=== PATIENT | female | born 1955 ===

== ENCOUNTER → 2022-02-04 | Outpatient (CLI) | payer MEDICARE, OTHER ==
[2022-02-04 10:30] VITALS: BP 121/85; PULSE 83; RESP 18; TEMP 98.8
--- NOTE | 2022-02-04 14:34 | P.PAINPG ---
PQRS Measure Charge Sheet Comment: HISTORY OF PRESENT ILLNESS: 66 yr old female as a referral from Dr. Tucker presents today with severe and chronic LBP secondary to DDD and facet arthropathy for evaluation. Pt states her LBP is 8/10 in intensity, constant, localized on the lower aspect of the lumbar spine, constant, stabbing in the back w radiation towards the LLE. Provoked with standing/walking/ sitting for periods of 30 min or more. Palliated with heat, ([place], Neurontin, Ibuprofen), repositioning and rest. PMH: OA, Hypothyroidism PSH: Thyroid resection, Appendectomy, Cholecystectomy, Tonsillectomy SH: +Tobacco user, No ETOH use, No illicit drug use. FH: Mo- HTN. Maternal Aunt- CA. MGM- Laryngeal CA. All: NKDA Meds: See list REVIEW OF ORGAN SYSTEMS: CONSTITUTIONAL: No fevers or chills. No recent weight loss. NEUROLOGICAL: + numbness and tingling along the distal extremities. No seizure disorders or headaches. MUSCULOSKELETAL: + pain PSYCHIATRIC: Denies current depression or suicidal thoughts. Physical Examinations : Constitutional : Cooperative , not in acute distress . Neurologic : Cranial nerve II to XII intact. No focal neurological deficits. Psychiatric : alert & oriented x 3. Matching mood & appropriate affect. Judgment & insight intact. Musculoskeletal : Cervical Spine Motor strength in the deltoid and biceps: Normal right side. Normal Left side Motor strength biceps and the wrist extensors: Normal right side . Normal left side Motor strength in the triceps muscle: Normal right side. Normal left side Deep tendon reflexes: Normal at the biceps. Normal at Brachioradialis. Normal at triceps Vertebral body tenderness to deep palpation over Cervical facet loading test: positive bilaterally Spurling test: positive bilaterally Neck distraction test: positive bilaterally Gomez sign: positive bilaterally Lumbar spine Motor strength lower extremities ,thigh and legs 5/5 Right side , 5/5 Left side Deep tendon reflexes : Normal Knee Jerk. Normal Ankle Jerk Vertebral body tenderness over L4 Lumbar facet Loading Test: positive Right / positive Left Range of motion of the lumbar spine Flexion 30 degrees, extension 10 degrees Straight Leg Raise test: Left/ Right positive at degree Leobardo test: positive right / positive left. Severe tenderness over the Sacroiliac joint on the Right / Left sides Gaenslen test: positive bilaterally Seated flexion test: positive bilaterally. Sacral spine : Severe tenderness over the Sacroiliac joint: right side / left side Range of motion: Flexion of the lumbar spine <60 degrees Range of motion: Extension of the lumbar spine <20 degrees Gaenslen's Test positive Awais's Test positive Leobardo test: positive right side / left side Thigh Thrust Test Sacral Thrust Test Imaging: MRI without contrast of the lumbar spine from 12/16/21 reviewed. X ray of the lumbar spine from 11/30/21 reviewed. Assessment/ Plan : Lumbar DDD, Lumbar disc bulges, Lumbar facet arthropathy Recommendation of LESI L4-L5. May need a series of injections, up to 3 within a 6 mo period, for optimal pain relief. Risks, benefits of procedure discussed and patient verbalized understanding. Denies aspirin or anti- coagulant use or medical history of diabetes. Protocol for discontinuation/ continuation of medications dereck procedure discussed. All questions answered. I have spent greater than 30 minutes on patient care today. Dr Torres was available by phone for the evaluation of this patient. The time was used to review the medical records including relevant urine studies and Prescription history (MAPs), review of the available imaging, evaluation and examination of the patient, coordination of care with the medical staff and if applicable referring physicians, as well as creation of the medical record - Pain Location Bilateral Lower Back Non-Pharmacological Interventions: Heat Pharmacological Interventions: Scheduled Medication Home Medications: Ambulatory Orders Gabapentin [Neurontin] PO DAILY 02/04/22 Ibuprofen [Motrin] PO BID 02/04/22 Controlled Substance Measures - Controlled Substance Measures Is patient prescribed a controlled substance at discharge?: No
== END | disposition home or self-care (01) ==
LOC: PNWHC3 09:49
PROVIDERS: ATTEND Specialist
DX: M47.896 Other spondylosis, lumbar region (principal); M51.36 Other intervertebral disc degeneration, lumbar region
CPT/HCPCS: 99202

== ENCOUNTER 2022-04-15 10:38 | Day surgery (SDC) | payer MEDICARE, OTHER ==
[2022-04-13 16:12] VITALS: BMI 26.0
[~2022-04-15 10:38] MED LIST: LACTATED RINGERS 1,000 ML IV SCH; LIDOCAINE 1% (10MG/ML) FOR IV START INTRADERMA PRN
[2022-04-15 11:06] VITALS: TEMP 97.5
[2022-04-15] MEDS ORDERED: fentaNYL (PF) 50 MCG/ML 2 ML AMP ONE (12:18)
[2022-04-15] MEDS ORDERED: methylPREDNISolone ACETATE 80 MG/ML 1 ML VIAL ONE (12:18)
[2022-04-15] MEDS ORDERED: MIDAZOLAM 2 MG/2 ML VIAL ONE (12:18)
[2022-04-15] MEDS ORDERED: IOPAMIDOL M200 10 ML VIAL ONE (12:18)
--- NOTE | 2022-04-15 12:30 | P.PCN ---
Date of Procedure: 04/15/22 Procedure(s) Performed: PREOPERATIVE DIAGNOSIS: 1- Lumbar Degenerative Disc Diseases 2-Lumbar spondylosis with Facet arthropathy without myelopathy. POSTOPERATIVE DIAGNOSIS: Same as preop diagnosis. PROCEDURE 1. Lumbar epidural steroid injection under fluoroscopic guidance at the L4-5 level. (Fluoroscopy imaging was available in radiology department) 2. Lumbar epidurogram. ANESTHESIA: moderate sedation with intravenous Versed 2 mg ,and fentanyle 100 Mcg Sedation start time : 1221 Sedation end time : 1228 EBL: Minimal PROCEDURE INDICATION: The patient with low back pain and radiculitis symptoms unresponsive to conservative treatment. Fluoroscopy was used to optimize visualization of the needle placement and to maximize safety. PROCEDURE DESCRIPTION / TECHNIQUE: The patient was seen and identified in the preoperative area. Risks, benefits, complications including but not limited to infections ,bleeding ,allergic reaction to the medications ,nerve damage and not complete pain releife , and alternatives were discussed with the patient. The patient agreed to proceed with the procedure and signed the consent. IV was started, and vital signs were stable. Patient was taken to the OR and time out was completed. The patient was placed in the prone position on procedure table and a pillow was placed under the abdomen to reduce lumbar lordosis. The lumbosacral area was prepped and draped in the usual sterile fashion.ere closely monitored during the procedure. Conscious sedation was used during the procedure to decrease patients anxiety. Vital signs was monitered during the entire procedure. Using anterior-posterior fluoroscopy, the L4-5 interlaminar space was identified and the skin over this site was marked and then infiltrated with 1% lidocaine subcutaneously. Subsequently, a 20-gauge Tuohy epidural needle was inserted and advanced toward the epidural space using the ``Loss of resistance technique and guided by AP and lateral fluoroscopy. The correct needle position in the epidural space was verified with the injection of 2 mL of the water soluble contrast dye Isovue 200 contrast and observing an excellent epidurogram with the epidural spread of the dye, after negative aspiration for blood and CSF and in the absence of paresthesias. Again after negative aspiration, a 6 ml mixture containing 60 mg of Depo-medrol ( Preservetive Free ), and 2 ml of preservative free Normal Saline, and 2 ml of preservative free lidocaine 1% solution was injected and a washout of epidurogram was seen. Needle was withdrawn intact, skin was cleansed, and bandages were applied. COMPLICATIONS: None DISPOSITION / PLANS: The patient was placed in a supine position and transferred to the recovery area in a stable condition for observation. There was no evidence of lower extremity motor or sensory deficit after the procedure. Patient was discharged from the recovery room after meeting discharge criteria. Home discharge instructions were given to the patient by the staff. The patient was reexamined prior to discharge. The patient will schedule a follow up in the clinic in 2-4 weeks.
[2022-04-15] MEDS ORDERED: IV FLUID CONTINUATION 750 ML IV ONE (12:34)
--- NOTE | 2022-04-15 12:39 | FL ---
Intraoperative/procedural fluoroscopic services were provided for lumbar epidural injection. Total fl uoroscopy time is 1 second with a total of 1 submitted image to PACS. Please see the operative note f or further details.
[2022-04-15 12:42] VITALS: RESP 20
[2022-04-15 12:55] VITALS: BP 110/61; PULSE 71
== END 2022-04-15 13:09 | disposition home or self-care (01) ==
LOC: ORPAIN 10:38
PROVIDERS: ATTEND Specialist
DX: M51.16 Intervertebral disc disorders with radiculopathy, lumbar region (principal); M47.26 Other spondylosis with radiculopathy, lumbar region
CPT/HCPCS: 94060; 94726; 94729; 62323; J2250; J1040; J3010; Q9966; G0463; 99204

== ENCOUNTER 2022-05-27 10:30 | Day surgery (SDC) | payer MEDICARE, OTHER ==
[2022-05-26 09:40] VITALS: BMI 25.9
[2022-05-27 11:07] VITALS: TEMP 98.3
[2022-05-27] MEDS ORDERED: MIDAZOLAM 2 MG/2 ML VIAL ONE (11:40)
[2022-05-27] MEDS ORDERED: fentaNYL (PF) 50 MCG/ML 2 ML AMP ONE (11:40)
[2022-05-27] MEDS ORDERED: methylPREDNISolone ACETATE 80 MG/ML 1 ML VIAL ONE (11:40)
[2022-05-27] MEDS ORDERED: IOPAMIDOL M200 10 ML VIAL ONE (11:40)
--- NOTE | 2022-05-27 11:48 | P.PCN ---
Date of Procedure: 05/27/22 Procedure(s) Performed: PREOPERATIVE DIAGNOSIS: 1- Lumbar Degenerative Disc Diseases 2-Lumbar spondylosis with Facet arthropathy without myelopathy. POSTOPERATIVE DIAGNOSIS: Same as preop diagnosis. PROCEDURE 1. Lumbar epidural steroid injection under fluoroscopic guidance at the L4-5 level. (Fluoroscopy imaging was available in radiology department) 2. Lumbar epidurogram. ANESTHESIA: moderate sedation with intravenous Versed 1 mg ,and fentanyle 50 Mcg Sedation start time : 1141 Sedation end time : 1146 EBL: Minimal PROCEDURE INDICATION: The patient with low back pain and radiculitis symptoms unresponsive to conservative treatment. Fluoroscopy was used to optimize visualization of the needle placement and to maximize safety. PROCEDURE DESCRIPTION / TECHNIQUE: The patient was seen and identified in the preoperative area. Risks, benefits, complications including but not limited to infections ,bleeding ,allergic reaction to the medications ,nerve damage and not complete pain releife , and alternatives were discussed with the patient. The patient agreed to proceed with the procedure and signed the consent. IV was started, and vital signs were stable. Patient was taken to the OR and time out was completed. The patient was placed in the prone position on procedure table and a pillow was placed under the abdomen to reduce lumbar lordosis. The lumbosacral area was prepped and draped in the usual sterile fashion.ere closely monitored during the procedure. Conscious sedation was used during the procedure to decrease patients anxiety. Vital signs was monitered during the entire procedure. Using anterior-posterior fluoroscopy, the L4-5 interlaminar space was identified and the skin over this site was marked and then infiltrated with 1% lidocaine subcutaneously. Subsequently, a 20-gauge Tuohy epidural needle was inserted and advanced toward the epidural space using the ``Loss of resistance technique and guided by AP and lateral fluoroscopy. The correct needle position in the epidural space was verified with the injection of 2 mL of the water soluble contrast dye Isovue 200 contrast and observing an excellent epidurogram with the epidural spread of the dye, after negative aspiration for blood and CSF and in the absence of paresthesias. Again after negative aspiration, a 6 ml mixture containing 60 mg of Depo-medrol ( Preservetive Free ), and 2 ml of preservative free Normal Saline, and 2 ml of preservative free lidocaine 1% solution was injected and a washout of epidurogram was seen. Needle was withdrawn intact, skin was cleansed, and bandages were applied. COMPLICATIONS: None DISPOSITION / PLANS: The patient was placed in a supine position and transferred to the recovery area in a stable condition for observation. There was no evidence of lower extremity motor or sensory deficit after the procedure. Patient was discharged from the recovery room after meeting discharge criteria. Home discharge instructions were given to the patient by the staff. The patient was reexamined prior to discharge. The patient will schedule a follow up in the clinic in 2-4 weeks.
[2022-05-27] MEDS ORDERED: IV FLUID CONTINUATION 1,000 ML IV ONE (11:50)
[2022-05-27 11:56] VITALS: RESP 15
[2022-05-27 12:06] VITALS: BP 131/75; PULSE 67
--- NOTE | 2022-05-27 12:48 | FL ---
Intraoperative/procedural fluoroscopic services were provided for lumbar epidural injection. Total fl uoroscopy time is 4 seconds with a total of 1 submitted image to PACS. Please see the operative note for further details.
== END 2022-05-27 12:30 | disposition home or self-care (01) ==
LOC: ORPAIN 10:30
PROVIDERS: ATTEND Specialist
DX: M51.16 Intervertebral disc disorders with radiculopathy, lumbar region (principal); M47.26 Other spondylosis with radiculopathy, lumbar region
CPT/HCPCS: 62323; J2250; J1040; J3010; Q9966

== ENCOUNTER 2023-09-28 13:58 | Inpatient (IN) | payer MEDICARE, OTHER ==
--- NOTE | 2023-09-28 14:18 | ED ---
General Adult HPI - General Chief complaint: Shortness of Breath Stated complaint: COPD Time Seen by Provider: 09/28/23 14:01 Source: patient, RN/MD, RN notes reviewed, old records reviewed Mode of arrival: EMS Limitations: no limitations - History of Present Illness Initial comments: Patient is a pleasant 68-year-old female present to the emergency department as a transfer. Patient went to the outside facility for difficulty breathing. Symptoms started close to a week ago. Patient was held in observation and transferred here for level of care. Patient still feels short of breath. Patient does have cough with rare ashley sputum. No fever. Patient does have history of similar symptoms previously associated with COPD. No leg pain or calf swelling. No fevers. - Related Data Home Medications Medication Instructions Recorded Confirmed Ibuprofen [Motrin] 600 mg PO BID 02/04/22 05/27/22 Ergocalciferol [Vitamin D2 (1250 50,000 unit PO MO 04/13/22 05/27/22 Mcg = 38662 Iu)] HYDROcodone/APAP 5-325MG [[place] 1 tab PO Q6HR PRN 04/13/22 05/26/22 5-325] Levothyroxine Sodium 125 mcg PO DAILY 04/13/22 05/26/22 Allergies Allergy/AdvReac Type Severity Reaction Status Date / Time No Known Allergies Allergy Verified 09/28/23 14:13 Review of Systems ROS Statement: Those systems with pertinent positive or pertinent negative responses have been documented in the HPI. ROS Other: All systems not noted in ROS Statement are negative. Constitutional: Denies: fever Eyes: Denies: eye pain ENT: Denies: ear pain Respiratory: Reports: as per HPI, cough, dyspnea Cardiovascular: Denies: chest pain Endocrine: Denies: fatigue Gastrointestinal: Denies: abdominal pain Past Medical History Past Medical History: COPD, Thyroid Disorder Additional Past Medical History / Comment(s): Back pain, Bursitis History of Any Multi-Drug Resistant Organisms: None Reported Past Surgical History: Appendectomy, Section, Cholecystectomy, Tonsillectomy Additional Past Surgical History / Comment(s): Thyroid surgery Past Anesthesia/Blood Transfusion Reactions: No Reported Reaction Additional Past Anesthesia/Blood Transfusion Reaction / Comment(s): currently a smoker. Past Psychological History: No Psychological Hx Reported Smoking Status: Current every day smoker - Past Family History Mother Family Medical History: No Reported History General Exam Limitations: no limitations General appearance: alert, in no apparent distress Head exam: Present: normocephalic Eye exam: Present: normal appearance Neck exam: Present: normal inspection Respiratory exam: Present: wheezes, decreased breath sounds Cardiovascular Exam: Present: regular rate, normal rhythm GI/Abdominal exam: Present: soft. Absent: tenderness Extremities exam: Present: normal inspection. Absent: pedal edema, calf tenderness Neurological exam: Present: alert Psychiatric exam: Present: normal affect, normal mood Skin exam: Present: normal color Course Vital Signs 09/28/23 09/28/23 14:05 14:19 Temperature 97.7 F Pulse Rate 92 Respiratory 18 20 Rate Blood Pressure 164/92 O2 Sat by Pulse 92 L Oximetry Medical Decision Making - Medical Decision Making Was pt. sent in by a medical professional or institution ([facility], [facility], urgent care, hospital, or custodial...) When possible be specific @ -Patient sent from [facility] Did you speak to anyone other than the patient for history (EMS, parent, family, police, friend...)? What history was obtained from this source @ -Spoke with transferring physician Did you review nursing and triage notes (agree or disagree)? Why? @ -I reviewed and agree with nursing and triage notes Were old charts reviewed (outside hosp., previous admission, EMS record, old EKG, old radiological studies, urgent care reports/EKG's, custodial records)? Report findings @ -Chart reviewed from [facility] Differential Diagnosis (chest pain, altered mental status, abdominal pain women, abdominal pain men, vaginal bleeding, weakness, fever, dyspnea, syncope, headache, dizziness, GI bleed, back pain, seizure, CVA, palpatations, mental health, musculoskeletal)? @ -Differential Dyspnea: Coronary syndrome, arrhythmia, tamponade, asthma, COPD, pulmonary embolism, pneumonia, pneumothorax, pulmonary effusion, anaphylaxis, diabetic ketoacidosis, flailed chest, pulmonary contusion, diaphragmatic rupture, anemia, neuromuscular, this is not meant to be an all-inclusive list. EKG interpreted by me (3pts min.). @ -As above X-rays interpreted by me (1pt min.). @ -None done CT interpreted by me (1pt min.). @ -None done U/S interpreted by me (1pt. min.). @ -None done What testing was considered but not performed or refused? (CT, X-rays, U/S, labs)? Why? @ -None What meds were considered but not given or refused? Why? @ -None Did you discuss the management of the patient with other professionals (professionals i.e. , PA, RED LEADER, lab, RT, psych nurse, social work faculty member, branch administrator, teacher, chief safety officer, director of casework)? Give summary @ -Also discussed with sound physician, Dr. Barrett who will admit covering hospital call Was smoking cessation discussed for >3mins.? @ -No Was critical care preformed (if so, how long)? @ -No Were there social determinants of health that impacted care today? How? (Homelessness, low income, unemployed, alcoholism, drug addiction, transportation, low edu. Level, literacy, decrease access to med. care, fdc, rehab)? @ -No Was there de-escalation of care discussed even if they declined (Discuss DNR or withdrawal of care, Hospice)? DNR status @ -No What co-morbidities impacted this encounter? (DM, HTN, Smoking, COPD, CAD, Cancer, CVA, ARF, Chemo, Hep., AIDS, mental health diagnosis, sleep apnea, morbid obesity)? @ -None Was patient admitted / discharged? Hospital course, mention meds given and route, prescriptions, significant lab abnormalities, going to OR and other pertinent info. @ -Patient transferred for COPD secondary to continued symptoms for higher level of care. Patient will be admitted. Chart reviewed. Admission orders written. Undiagnosed new problem with uncertain prognosis? @ -No Drug Therapy requiring intensive monitoring for toxicity (Heparin, Nitro, Insulin, Cardizem)? @ -No Were any procedures done? @ -No Diagnosis/symptom? @ -COPD Acute, or Chronic, or Acute on Chronic? @ -Acute Uncomplicated (without systemic symptoms) or Complicated (systemic symptoms)? @ -Complicated with hypoxia Side effects of treatment? @ -No Exacerbation, Progression, or Severe Exacerbation? @ -No Poses a threat to life or bodily function? How? (Chest pain, [place], [place], pneumonia, PE, COPD, DKA, ARF, appy, cholecystitis, CVA, Diverticulitis, Homicidal, Suicidal, threat to staff... and all critical care pts) @ -No Disposition Clinical Impression: Acute exacerbation of chronic obstructive pulmonary disease Disposition: ADMITTED IP TO THIS HOSP Is patient prescribed a controlled substance at d/c from ED?: No Referrals: Skyla Li FNPBC [Primary Care Provider] - 1-2 days Time of Disposition: 14:18
[2023-09-28] MEDS ORDERED: NALOXONE 0.4 MG/ML 1 ML VIAL IVP PRN (14:23)
[2023-09-28] MEDS ORDERED: ACETAMINOPHEN TAB 325 MG TAB PO PRN (14:23)
[2023-09-28] MEDS ORDERED: IPRATROPIUM-ALBUTEROL 3 ML NEB INHALATION PRN (14:23)
[2023-09-28] MEDS: methylPREDNISolone SOD SUCCI 125 MG/2 ML VIAL IV SCH (14:43)
[2023-09-28] MEDS: AZITHROMYCIN 500 MG in SODIUM CHLORIDE 0.9% 250 ML IVPB SCH (14:43)
[2023-09-28] MEDS ORDERED: ONDANSETRON 4 MG/2 ML VIAL IVP PRN (15:14)
[2023-09-28] MEDS ORDERED: DOCUSATE 100 MG CAP PO PRN (15:14)
--- NOTE | 2023-09-28 15:17 | P.HPIM ---
History of Present Illness H&P Date: 09/28/23 68 year old F with PMH of COPD, lower back pain, hypothyroidism presents to the ED as a transfer from [facility]. Presents with 4 days of SOB with wheezing. She reports a chronic cough productive of clear sputum. Notes pulse ox in the 70's at home. Attempted nebulized treatments without much relief. Smokes 1/2 pack of cigarettes daily for many years. She does not use oxygen at home. She underwent extensive evaluation at [facility]. O2 saturation as low as 88% with HR in the 110s. RSV COVID Flu negative. Lactic acid 1.2. CBC, CMP, coag panel performed significant for glucose 116, hematocrit 47.1, AST 46, INR 0.99. CT chest without contrast showed hiatal hernia, pulmonary nodules, emphysema, cholecystectomy, old healed rib fractures, mediastinal lymph nodes. Troponin negative. EKG sinus tachycardia. She was transferred to [facility] for further evaluation. BP 164/92, HR 92, RR 18, T 97.7F, 92% on 4L NC. General: non toxic, no distress, appears at stated age Derm: warm, dry Head: atraumatic, normocephalic, symmetric Eyes: EOMI, no lid lag, anicteric sclera Mouth: no lip lesion, mucus membranes moist Cardiovascular: S1S2 tachy, no murmur Lungs: Expiratory wheezing bilateral, no rhonchi, no rales , no accessory muscle use Ext: no gross muscle atrophy, no edema, no contractures Neuro: no focal neuro deficits Psych: Alert, oriented, appropriate affect Based on my assessment of this patient, this patient meets a high complexity level of care. Patient has an acute diagnosis of COPD exacerbation that poses a threat to life or bodily function. Acute hypoxic respiratory failure Acute on chronic COPD exacerbation: DuoNeb QID scheduled and Q2H PRN for SOB/w heezing. Solumedrol 60 mg IV Q6H. Symbicort 2 puff BID. Telemetry monitoring. Pulmonary consult. Acute bronchitis: Azithromycin 500 mg IV QD x 3 days. Pulmonary nodules: Pulmonary consult. Chronic conditions: Lower back pain, hypothyroidism CODE STATUS: FULL CODE. DVT Prophylaxis: Lovenox SQ GI Prophylaxis: Protonix PO Designated medical POA if patient is not able to make medical decisions for emselves: Son I have reviewed the following lactation consultant notes: ED. I have reviewed the results of the following tests: As above. I have ordered the following tests: As above. I have discussed the care of this patient with the following independent historian: I have independently interpreted the following test below: EKG. I have discussed the management of this patient with the following physician: Past Medical History Past Medical History: COPD, Thyroid Disorder Additional Past Medical History / Comment(s): Back pain, Bursitis History of Any Multi-Drug Resistant Organisms: None Reported Past Surgical History: Appendectomy, Section, Cholecystectomy, Tonsillectomy Additional Past Surgical History / Comment(s): Thyroid surgery Past Anesthesia/Blood Transfusion Reactions: No Reported Reaction Additional Past Anesthesia/Blood Transfusion Reaction / Comment(s): currently a smoker. Past Psychological History: No Psychological Hx Reported Smoking Status: Current every day smoker - Past Family History Mother Family Medical History: No Reported History Medications and Allergies Home Medications Medication Instructions Recorded Confirmed Type HYDROcodone/APAP 5-325MG [[place] 1 tab PO Q12H PRN 04/13/22 09/28/23 History 5-325] Levothyroxine Sodium 125 mcg PO DAILY 04/13/22 09/28/23 History Cyclobenzaprine [Flexeril] 10 mg PO Q12H PRN 09/28/23 09/28/23 History Naproxen Sodium [Aleve] 220 - 440 mg PO Q8H PRN 09/28/23 09/28/23 History Allergies Allergy/AdvReac Type Severity Reaction Status Date / Time No Known Allergies Allergy Verified 09/28/23 15:10 Physical Exam Vitals: Vital Signs Temp Pulse Resp BP Pulse Ox 09/28/23 14:19 20 09/28/23 14:05 97.7 F 92 18 164/92 92 L Intake and Output 09/28/23 09/28/23 09/28/23 06:59 14:59 22:59 Other: Weight 58.513 kg Results Labs: Abnormal Lab Results - Last 24 Hours (Table) 09/28/23 Range/Units 14:43 Plasma Lactic Acid Vinny 2.4 H* (0.7-2.0) mmol/L
[2023-09-28] MEDS: IPRATROPIUM-ALBUTEROL 3 ML NEB INHALATION SCH (15:48)
[2023-09-28] MEDS: SODIUM CHLORIDE 0.9% 1,000 ML IV SCH (17:44)
[2023-09-28] MEDS: HYDROcodone/APAP 5-325MG 1 EACH TAB PO PRN (17:58)
[2023-09-28] MEDS: CYCLOBENZAPRINE 10 MG TAB PO PRN (18:11)
[2023-09-28] MEDS: CALCIUM CARBONATE 500 MG CHEWABLE PO PRN (20:14)
[2023-09-28] MEDS: SYMBICORT 160-4.5 MCG INHALER INHALATION SCH (21:18)
--- NOTE | 2023-09-29 00:33 | XR ---
EXAM: XR Chest, 1 View CLINICAL HISTORY: ITS.REASON XR Reason: acute hypoxemic respiratory failure TECHNIQUE: Frontal view of the chest. COMPARISON: No relevant prior studies available. FINDINGS: Lungs: Hyper inflation of the lungs No consolidation. Pleural space: Unremarkable. No pneumothorax. Heart: Unremarkable. No cardiomegaly. Mediastinum: Unremarkable. Normal mediastinal contour. Bones/joints: Unremarkable. No acute fracture. IMPRESSION: Mild changes COPD.
--- NOTE | 2023-09-29 03:43 | P.CNPUL ---
History of Present Illness Consult date: 09/29/23 Requesting physician: Ari Holden Reason for consult: dyspnea Chief complaint: Shortness of breath, wheezing, coughing History of present illness: I am seeing this patient in new consultation today 09/29/2023 after she was transferred from [facility] for suspected acute COPD exacerbation. Patient is a 68-year-old white female with past medical history significant for COPD, current 1/2 pack/day smoker, chronic back pain, and hypothyroidism. Her primary care provider is a nurse practitioner, Skyla Li, in the [place] area. Patient does have history of COPD. She does not utilize any inhalers, as she is afraid to become "dependent on them". Starting last Tuesday, the patient began to have symptoms of cough, wheezing, and progressively worsening shortness of breath. Denies any significant sputum production. Denies any fevers. Denies any chest pain. She continues to smoke 1/2 pack/day. She originally presented to [facility]. She was negati ve for influenza, RSV, COVID at this facility. She was then transferred to [facility] for higher level of care yesterday. Currently, she is sitting up in bed, on 5 L/min nasal cannula, in no acute distress. She is not oxygen dependent at home. Chest x-ray at our facility does not show any acute infiltrates or evidence of pneumonia. There are some hyperinflation consistent with COPD. Labs are pending for the morning. She was started on combination of bronchodilators [id number], Symbicort Hailer, and IV Solu-Medrol. She is also empirically covered on azithromycin. She is afebrile. Vital signs are stable. Review of Systems REVIEW OF SYSTEMS: CONSTITUTIONAL: Denies any recent significant weight loss or weight gain. EYES: Denies change in vision. EARS, NOSE, MOUTH, THROAT: Denies headaches, postnasal drip, sore throat CARDIOVASCULAR: Denies chest pain, palpitations or syncopal episodes. RESPIRATORY: See HPI GASTROINTESTINAL: Denies change in appetite, abdominal pain, nausea and vomiting, or diarrhea GENITOURINARY: Denies hematuria, denies infections. MUSKULOSKELETAL: Denies pain, denies swelling. INTEGUMENTARY: Denies rash, denies eczema. NEUROLOGICAL: Denies recent memory loss, no recent seizure activity. PSYCHIATRIC: Denies anxiety, denies depression. HEMATOLOGIC/LYMPHATIC: Denies anemia, denies enlarged lymph node Past Medical History Past Medical History: COPD, Thyroid Disorder Additional Past Medical History / Comment(s): Back pain, Bursitis, History of Any Multi-Drug Resistant Organisms: None Reported Past Surgical History: Appendectomy, Section, Cholecystectomy, Tonsillectomy Additional Past Surgical History / Comment(s): Thyroid surgery Past Anesthesia/Blood Transfusion Reactions: No Reported Reaction Additional Past Anesthesia/Blood Transfusion Reaction / Comment(s): currently a smoker. Past Psychological History: No Psychological Hx Reported Smoking Status: Current every day smoker Past Alcohol Use History: None Reported Additional Past Alcohol Use History / Comment(s): STARTED SMOKING AT AGE 13 SMOKED ON AND OFF, SMOKES 3/4 PPD Past Drug Use History: None Reported - Past Family History Mother Family Medical History: No Reported History Medications and Allergies Home Medications Medication Instructions Recorded Confirmed Type HYDROcodone/APAP 5-325MG [Wiseman 1 tab PO Q12H PRN 04/13/22 09/28/23 History 5-325] Levothyroxine Sodium 125 mcg PO DAILY 04/13/22 09/28/23 History Cyclobenzaprine [Flexeril] 10 mg PO Q12H PRN 09/28/23 09/28/23 History Naproxen Sodium [Aleve] 220 - 440 mg PO Q8H PRN 09/28/23 09/28/23 History Allergies Allergy/AdvReac Type Severity Reaction Status Date / Time No Known Allergies Allergy Verified 09/28/23 15:10 Physical Exam Vitals: Vital Signs Temp Pulse Pulse Resp BP BP Pulse Ox 09/29/23 01:53 97.9 F 82 20 156/77 96 09/28/23 21:33 90 09/28/23 21:18 85 09/28/23 20:00 20 09/28/23 19:33 98 F 73 18 150/77 93 L 09/28/23 16:02 96 09/28/23 15:55 92 L 09/28/23 15:54 92 09/28/23 14:19 20 09/28/23 14:05 97.7 F 92 18 164/92 92 L Intake and Output 09/28/23 09/28/23 09/29/23 14:59 22:59 06:59 Other: Voiding Method Toilet # Voids 3 Weight 58.513 kg 58.513 kg GENERAL EXAM: Alert, 68-year-old white female, appearing older than stated age, comfortable in no apparent distress. HEAD: Normocephalic and atraumatic EYES: Normal reaction of pupils, equal size. NOSE: Clear with pink turbinates. THROAT: No erythema or exudates. NECK: No masses, no JVD. CHEST: No chest wall deformity. LUNGS: Equal air entry with expiratory wheezes heard posteriorly, on 5 L/min nasal cannula, no conversational dyspnea or accessory muscle use while at rest CVS: S1 and S2 normal with no audible murmur, regular rhythm. No extra heart sounds ABDOMEN: No hepatosplenomegaly, active bowel sounds, no guarding or rigidity. SPINE: No scoliosis or deformity SKIN: No rashes CENTRAL NERVOUS SYSTEM: No focal deficits, tone is normal in all 4 extremities. EXTREMITIES: There is no peripheral edema, clubbing, or cyanosis. Peripheral pulses are intact. Results - Laboratory Findings Abnormal lab findings: Abnormal Labs 09/28/23 14:43 Plasma Lactic Acid Vinny 2.4 H* - Diagnostic Findings Chest x-ray: image reviewed Assessment and Plan Assessment: Acute COPD exacerbation, chest x-ray does not show any acute infiltrates or evidence of pneumonia. There is hyperinflation consistent with COPD. Negative for influenza, RSV, COVID at outside facility. Acute hypoxemic respiratory failure, currently on 5 L/min nasal cannula Chronic ongoing tobacco dependence History of hypothyroidism History of chronic back pain Plan: Patient's medications and chest x-ray reviewed. Labs are pending Continue supplemental oxygen, to maintain oxygen saturation of 92% or greater Continue empiric azithromycin Continue combination of DuoNebs, Symbicort inhaler, and IV Solu-Medrol Patient is interested in following with a decision analyst in the office. She has never had a complete PFT. Also, recommend low-dose annual lung cancer screening Smoking cessation counseling performed. Patient has refused nicotine replacement We will continue to follow I have personally seen and examined the patient, performed the documentation and the assessment and plan as written. Number of minutes spent on the visit:20 Time with Patient: Greater than 30
[2023-09-29] MEDS: LEVOTHYROXINE 125 MCG TAB PO SCH (05:55)
[2023-09-29] MEDS: PANTOPRAZOLE 40 MG TABLET PO SCH (05:57)
[2023-09-29] MEDS: ENOXAPARIN 40 MG/0.4 ML SYRINGE SQ SCH (08:36)
--- NOTE | 2023-09-29 11:14 | P.PN ---
Subjective Progress Note Date: 09/29/23 No new complaints. Pt reports dyspnea has improved. Titrated down to 5L NC today. Upgraded to inpatient due to ongoing hypoxia/respiratory failure. Gen: In NAD, non-toxic HEENT: normocephalic, atraumatic, hearing acuity is intant, mucous membranes moist CVS: perfusing all extremities well, no pitting edema, Respiratory: symmetric chest expansion, no accessory muscle use, diffuse wheezing GI: soft, NTTP, ND, : no suprapubic tenderness, no CVA tenderness MSK/Derm: no rashes, cyanosis Neuro: CN II-XII intact, no motor weakness, Psych: cooperative, euthymic mood, judgment and insight is intact Hospital course: 68 year old F with PMH of COPD, lower back pain, hypothyroidism presents to the ED as a transfer from [place]. Presents with 4 days of SOB with wheezing. She reports a chronic cough productive of clear sputum. Notes pulse ox in the 70's at home. Attempted nebulized treatments without much relief. Smokes 1/2 pack of cigarettes daily for many years. She does not use oxygen at home. She underwent extensive evaluation at [facility]. O2 saturation as low as 88% with HR in the 110s. RSV COVID Flu negative. Lactic acid 1.2. CBC, CMP, coag panel performed significant for glucose 116, hematocrit 47.1, AST 46, INR 0.99. CT chest without contrast showed hiatal hernia, pulmonary nodules, emphysema, cholecystectomy, old healed rib fractures, mediastinal lymph nodes. Troponin negative. EKG sinus tachycardia. She was transferred to [facility] for further evaluation. BP 164/92, HR 92, RR 18, T 97.7F, 92% on 4L NC. Assessment/Plan: Acute hypoxic respiratory failure Acute on chronic COPD exacerbation: -DuoNeb QID scheduled and Q2H PRN for SOB/wheezing. -Solumedrol 60 mg IV Q6H. Symbicort 2 puff BID. -Telemetry monitoring. -Pulmonary consult. -Add flutter valve -Azithromycin 500 mg IV QD x 3 days. Pulmonary nodules: Pulmonary consult. Chronic conditions: Lower back pain, hypothyroidism CODE STATUS: FULL CODE. DVT Prophylaxis: Lovenox SQ GI Prophylaxis: Protonix PO Designated medical POA if patient is not able to make medical decisions for t hemselves: Son Objective - Vital Signs Vital signs: Vital Signs Temp 98.0 F 09/29/23 07:40 Pulse 88 09/29/23 08:15 Resp 19 09/29/23 07:40 BP 164/92 09/29/23 07:40 Pulse Ox 93 L 09/29/23 08:05 FiO2 Intake & Output 09/28/23 09/29/23 09/29/23 18:59 06:59 18:59 Weight 58.513 kg Other: Voiding Method Toilet # Voids 3 3 - Labs Labs: Abnormal Lab Results - Last 24 Hours (Table) 09/28/23 Range/Units 14:43 Plasma Lactic Acid Vinny 2.4 H* (0.7-2.0) mmol/L
[2023-09-29 11:19] LABS: Basophils # (A) 0.02 X 10*3/uL (0.00-0.10); Basophils % (A) 0.2 %; Eosinophils # (A) 0.02 X 10*3/uL (0.04-0.35); Eosinophils % (A) 0.2 %; HCT 38.5 % (37.2-46.3); HGB 12.4 g/dL (12.0-15.0); Lymphocytes # (A) 0.57 X 10*3/uL (0.90-5.00); Lymphocytes % (A) 7.1 %; MCH 29.7 pg (27.0-32.0); MCHC 32.2 g/dL (32.0-37.0); MCV 92.1 FL (80.0-97.0); Mean Platelet Volume 10.3 FL (9.5-12.2); Monocytes # (A) 0.14 X 10*3/uL (0.20-1.00); Monocytes % (A) 1.7 %; NRBC Per 100 WBC 0 X 10*3/uL (0.00-0.01); Neutrophils # (A) 7.21 X 10*3/uL (1.80-7.70); Neutrophils % (A) 89.6 %; Platelet Count 251 X 10*3/uL (140-440); RBC 4.18 X 10*6/uL (4.10-5.20); RDW 13.2 % (11.5-14.5); WBC 8.06 X 10*3/uL (4.50-10.00)
[2023-09-29 11:39] LABS: BUN/Creat Ratio 16.86 Ratio (12.00-20.00); Blood Urea Nitrogen 11.8 mg/dL (9.0-27.0); Calcium 8.8 mg/dL (8.7-10.3); Carbon Dioxide 29.9 mmol/L (21.6-31.8); Chloride 103 mmol/L (96-109); Glucose 143 mg/dL (70-110); Potassium 3.6 mmol/L (3.5-5.5); Sodium 142 mmol/L (135-145)
[2023-09-29 16:19] VITALS: BMI 26.0
--- NOTE | 2023-09-29 17:35 | P.CNPUL ---
History of Present Illness Consult date: 09/29/23 Reason for consult: dyspnea, COPD History of present illness: 68-year-old female patient, a chronic smoker continues to smoke 1/2 pack of cigarettes a day, coming to the hospital because of worsening shortness of breath. Note that she has been hospitalized in the past and her last hospitalization was around 1 or 2 years ago for COPD exacerbation. She used to [facility] and [facility] she is currently in [place] and she got transferred because of worsening shortness of breath. Some limited cough. Limited sputum production. No chest pain. No hemoptysis or pleurisy. He is not using any form of maintenance as per medications or inhalers. 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 She is currently on 5 L O2 nasal cannula. In the emergency, the chest x-ray showed no evidence of an acute pneumonia. No history of bronchial asthma. Lab work was noted and the patient has essentially a normal CBC with a white cell count of 8 with a hemoglobin 12.4 and a platelet count of 251. Electrolytes are normal. Initial lactic left acid level was at 2.4 dropped down to 1.3. The patient has no altered mentation. No previous history of DVT or pulmonary embolism. For now, she is on DuoNeb updrafts, she is on Symbicort as maintenance and she is also on IV Solu-Medrol 60 mg every 6 hours. She is on Lovenox for DVT prophylaxis 40 mg SQ daily. No recurrent pneumonias. Review of Systems CONSTITUTIONAL: Denies any recent significant weight loss or weight gain. EYES: Denies change in vision. EARS, NOSE, MOUTH, THROAT: Denies headaches, postnasal drip, sore throat CARDIOVASCULAR: Denies chest pain, palpitations or syncopal episodes. RESPIRATORY: See HPI GASTROINTESTINAL: Denies change in appetite, abdominal pain, nausea and vomiting, or diarrhea GENITOURINARY: Denies hematuria, denies infections. MUSKULOSKELETAL: Denies pain, denies swelling. INTEGUMENTARY: Denies rash, denies eczema. NEUROLOGICAL: Denies recent memory loss, no recent seizure activity. PSYCHIATRIC: Denies anxiety, denies depression. HEMATOLOGIC/LYMPHATIC: Denies anemia, denies enlarged lymph nod Past Medical History Past Medical History: COPD, Thyroid Disorder Additional Past Medical History / Comment(s): Back pain, Bursitis, History of Any Multi-Drug Resistant Organisms: None Reported Past Surgical History: Appendectomy, Section, Cholecystectomy, Tonsillectomy Additional Past Surgical History / Comment(s): Thyroid surgery Past Anesthesia/Blood Transfusion Reactions: No Reported Reaction Additional Past Anesthesia/Blood Transfusion Reaction / Comment(s): currently a smoker. Past Psychological History: No Psychological Hx Reported Smoking Status: Current every day smoker Past Alcohol Use History: None Reported Additional Past Alcohol Use History / Comment(s): STARTED SMOKING AT AGE 13 SMOKED ON AND OFF, SMOKES 3/4 PPD Past Drug Use History: None Reported - Past Family History Mother Family Medical History: No Reported History Medications and Allergies Home Medications Medication Instructions Recorded Confirmed Type HYDROcodone/APAP 5-325MG [Carroll 1 tab PO Q12H PRN 04/13/22 09/28/23 History 5-325] Levothyroxine Sodium 125 mcg PO DAILY 04/13/22 09/28/23 History Cyclobenzaprine [Flexeril] 10 mg PO Q12H PRN 09/28/23 09/28/23 History Naproxen Sodium [Aleve] 220 - 440 mg PO Q8H PRN 09/28/23 09/28/23 History Allergies Allergy/AdvReac Type Severity Reaction Status Date / Time No Known Allergies Allergy Verified 09/28/23 15:10 Physical Exam Vitals: Vital Signs Temp Pulse Pulse Resp BP BP Pulse Ox 09/29/23 17:06 76 09/29/23 16:54 76 80 18 157/76 91 L 09/29/23 15:18 98.2 F 86 19 149/81 89 L 09/29/23 12:45 84 09/29/23 12:34 88 09/29/23 08:15 88 09/29/23 08:05 90 93 L 09/29/23 07:40 98.0 F 74 19 164/92 93 L 09/29/23 01:53 97.9 F 82 20 156/77 96 09/28/23 21:33 90 09/28/23 21:18 85 09/28/23 20:00 20 09/28/23 19:33 98 F 73 18 150/77 93 L Intake and Output 09/29/23 09/29/23 09/29/23 06:59 14:59 22:59 Other: # Voids 3 2 Weight 58.513 kg GENERAL EXAM: Alert, 68-year-old white female, appearing older than stated age, comfortable in no apparent distress. The patient is currently on 5 L of O2 nasal cannula HEAD: Normocephalic and atraumatic EYES: Normal reaction of pupils, equal size. NOSE: Clear with pink turbinates. THROAT: No erythema or exudates. NECK: No masses, no JVD. CHEST: No chest wall deformity. LUNGS: Equal air entry with expiratory wheezes heard posteriorly, on 5 L/min nasal cannula, no conversational dyspnea or accessory muscle use while at rest CVS: S1 and S2 normal with no audible murmur, regular rhythm. No extra heart s ounds ABDOMEN: No hepatosplenomegaly, active bowel sounds, no guarding or rigidity. SPINE: No scoliosis or deformity SKIN: No rashes CENTRAL NERVOUS SYSTEM: No focal deficits, tone is normal in all 4 extremities. EXTREMITIES: There is no peripheral edema, clubbing, or cyanosis. Peripheral pulses are intact. Results - Laboratory Findings CBC and BMP: 09/29/23 06:42 09/29/23 06:42 Abnormal lab findings: Abnormal Labs 09/28/23 09/29/23 09/29/23 14:43 06:42 06:42 Immature Gran # 0.10 H Lymphocytes # 0.57 L Monocytes # 0.14 L Eosinophils # 0.02 L Glucose 143 H Plasma Lactic Acid Vinny 2.4 H* - Diagnostic Findings Chest x-ray: image reviewed Assessment and Plan Plan: Acute COPD exacerbation, chest x-ray does not show any acute infiltrates or evidence of pneumonia. There is hyperinflation consistent with COPD. Negative for influenza, RSV, COVID at outside facility. Patient has chronic COPD, not utilizing any form of maintenance as per medication of inhalers. She has al buterol updrafts and HFA at home. Does not utilize oxygen at home. Acute hypoxemic respiratory failure, currently on 5 L/min nasal cannula, essentially secondary to acute exacerbation. No evidence of pneumonia on chest x-ray that was done at time of admission. Should be able to gradually the pat ient's FiO2 as tolerated to maintain saturation above 90%. Chronic ongoing tobacco dependence History of hypothyroidism History of chronic back pain Plan: Continue supplemental oxygen, to maintain oxygen saturation of 92% or greater, titrate oxygen flow to maintain saturation above 90% Will optimize COPD Continue empiric azithromycin, no evidence of any pneumonia at this point in time and a viral screen has been negative Continue combination of DuoNebs, Symbicort inhaler, and IV Solu-Medrol Will need outpatient PFT Will need to evaluate for home O2 requirement at time of discharge Recommend low-dose annual lung cancer screening Smoking cessation counseling performed. Patient has refused nicotine replacement DVT prophylaxis Increase mobility Will continue to follow
[2023-09-30 08:19] LABS: Basophils % (A) 0 %; Eosinophils % (A) 0 %; HCT 42.9 % (34.0-46.0); HGB 13.4 gm/dL (11.4-16.0); Lymphocytes # (A) 0.5 k/uL (1.0-4.8); Lymphocytes % (A) 7 %; MCH 29.4 pg (25.0-35.0); MCHC 31.1 g/dL (31.0-37.0); MCV 94.3 fL (80.0-100.0); Mean Platelet Volume 8.7; Monocytes # (A) 0.3 k/uL (0-1.0); Monocytes % (A) 4 %; Neutrophils # (A) 5.9 k/uL (1.3-7.7); Neutrophils % (A) 87 %; Platelet Count 335 k/uL (150-450); RBC 4.55 m/uL (3.80-5.40); RDW 13.3 % (11.5-15.5); WBC 6.8 k/uL (3.8-10.6)
[2023-09-30 08:28] LABS: African American GFR (CKD) >90 (>60 ml/min/1.73 sqM); Anion Gap 7 mmol/L; Blood Urea Nitrogen 17 mg/dL (7-17); Calcium 8.7 mg/dL (8.4-10.2); Carbon Dioxide 30 mmol/L (22-30); Chloride 103 mmol/L (98-107); Glucose 127 mg/dL (74-99); Magnesium 1.9 mg/dL (1.6-2.3); Non-African American GFR(CKD) 89 (>60 ml/min/1.73 sqM); Potassium 3.6 mmol/L (3.5-5.1); Sodium 140 mmol/L (137-145)
--- NOTE | 2023-09-30 14:38 | P.PN ---
Subjective Progress Note Date: 09/30/23 No new complaints. Pt reports dyspnea continues to improve. Titrated down to 4L NC today. Upgraded to inpatient due to ongoing hypoxia/respiratory failure. Gen: In NAD, non-toxic HEENT: normocephalic, atraumatic, hearing acuity is intant, mucous membranes moist CVS: perfusing all extremities well, no pitting edema, Respiratory: symmetric chest expansion, no accessory muscle use, diffuse wheezing GI: soft, NTTP, ND, : no suprapubic tenderness, no CVA tenderness MSK/Derm: no rashes, cyanosis Neuro: CN II-XII intact, no motor weakness, Psych: cooperative, euthymic mood, judgment and insight is intact Hospital course: 68 year old F with PMH of COPD, lower back pain, hypothyroidism presents to the ED as a transfer from [place]. Presents with 4 days of SOB with wheezing. She reports a chronic cough productive of clear sputum. Notes pulse ox in the 70's at home. Attempted nebulized treatments without much relief. Smokes 1/2 pack of cigarettes daily for many years. She does not use oxygen at home. She underwent extensive evaluation at [facility]. O2 saturation as low as 88% with HR in the 110s. RSV COVID Flu negative. Lactic acid 1.2. CBC, CMP, coag panel performed significant for glucose 116, hematocrit 47.1, AST 46, INR 0.99. CT chest without contrast showed hiatal hernia, pulmonary nodules, emphysema, cholecystectomy, old healed rib fractures, mediastinal lymph nodes. Troponin negative. EKG sinus tachycardia. She was transferred to [facility] for further evaluation. BP 164/92, HR 92, RR 18, T 97.7F, 92% on 4L NC. Assessment/Plan: Acute hypoxic respiratory failure Acute on chronic COPD exacerbation: -DuoNeb QID scheduled and Q2H PRN for SOB/wheezing. -Solumedrol 60 mg IV Q6H. Symbicort 2 puff BID. -Telemetry monitoring. -Pulmonary consult. -Add flutter valve -Azithromycin 500 mg IV QD x 3 days. Pulmonary nodules: Pulmonary consult. Chronic conditions: Lower back pain, hypothyroidism CODE STATUS: FULL CODE. DVT Prophylaxis: Lovenox SQ GI Prophylaxis: Protonix PO Designated medical POA if patient is not able to make medical decisions for themselves: Son Objective - Vital Signs Vital signs: Vital Signs Temp 97.9 F 09/30/23 08:00 Pulse 72 09/30/23 11:59 Resp 17 09/30/23 08:00 BP 143/83 09/30/23 08:00 Pulse Ox 95 09/30/23 11:50 FiO2 Intake & Output 09/29/23 09/30/23 09/30/23 18:59 06:59 18:59 Intake Total 0 Balance 0 Weight 58.513 kg Intake: Oral 0 Other: Voiding Method Toilet Toilet # Voids 2 1 - Labs CBC & Chem 7: 09/30/23 06:47 09/30/23 06:47 Labs: Abnormal Lab Results - Last 24 Hours (Table) 09/30/23 09/30/23 Range/Units 06:47 06:47 Lymphocytes # 0.5 L (1.0-4.8) k/uL Glucose 127 H (74-99) mg/dL Microbiology - Last 24 Hours (Table) 09/28/23 14:43 Blood Culture - Preliminary Blood 09/28/23 14:43 Blood Culture - Preliminary Blood
--- NOTE | 2023-09-30 16:06 | P.PN ---
Subjective Progress Note Date: 09/30/23 68-year-old female patient, a chronic smoker continues to smoke 1/2 pack of ci garettes a day, coming to the hospital because of worsening shortness of breath. Note that she has been hospitalized in the past and her last hospitalization was around 1 or 2 years ago for COPD exacerbation. She used to [facility] and [facility] she is currently in [place] and she got transferred because of worsening shortness of breath. Some limited cough. Limited sputum production. No chest pain. No hemoptysis or pleurisy. He is not using any form of maintenance as per medications or inhalers. 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 She is currently on 5 L O2 nasal cannula. In the emergency, the chest x-ray showed no evidence of an acute pneumonia. No history of bronchial asthma. Lab work was noted and the patient has essentially a normal CBC with a white cell count of 8 with a hemoglobin 12.4 and a platelet count of 251. Electrolytes are normal. Initial lactic left acid level was at 2.4 dropped down to 1.3. The patient has no altered mentation. No previous history of DVT or pulmonary embolism. For now, she is on DuoNeb updrafts, she is on Symbicort as maintenance and she is also on IV Solu-Medrol 60 mg every 6 hours. She is on Lovenox for DVT prophylaxis 40 mg SQ daily. No recurrent pneumonias. On today's evaluation of 09/30/2023, the patient is being seen for a follow-up. She is still hypoxic and she has been weaned down to 4 L of oxygen by nasal cannula. She is still requiring 5 L with activity. Still bronchospastic and wheezy and limited improvement since yesterday. The white cell count of 6.8 with a hemoglobin 13.4. Electrolytes are all within normal limits. The patient remains on DuoNeb updrafts, she remains on IV Solu-Medrol. Objective - Vital Signs Vital signs: Vital Signs Temp 97.9 F 09/30/23 08:00 Pulse 82 09/30/23 08:11 Resp 17 09/30/23 08:00 BP 143/83 09/30/23 08:00 Pulse Ox 96 09/30/23 08:00 FiO2 Intake & Output 09/29/23 09/30/23 09/30/23 18:59 06:59 18:59 Intake Total 0 Balance 0 Weight 58.513 kg Intake: Oral 0 Other: Voiding Method Toilet Toilet # Voids 2 1 - Exam 68-year-old female patient, a chronic smoker continues to smoke 1/2 pack of cigarettes a day, coming to the hospital because of worsening shortness of breath. Note that she has been hospitalized in the past and her last hospitalization was around 1 or 2 years ago for COPD exacerbation. She used to [facility] and [facility] she is currently in [place] and she got transferred because of worsening shortness of breath. Some limited cough. Limited sputum production. No chest pain. No hemoptysis or pleurisy. He is not using any form of maintenance as per medications or inhalers. 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 She is currently on 5 L O2 nasal cannula. In the emergency, the chest x-ray showed no evidence of an acute pneumonia. No history of bronchial asthma. Lab work was noted and the patient has essentially a normal CBC with a white cell count of 8 with a hemoglobin 12.4 and a platelet count of 251. Electrolytes are normal. Initial lactic left acid level was at 2.4 dropped down to 1.3. The patient has no altered mentation. No previous history of DVT or pulmonary embolism. For now, she is on DuoNeb updrafts, she is on Symbicort as maintenance and she is also on IV Solu-Medrol 60 mg every 6 hours. She is on Lovenox for DVT prophylaxis 40 mg SQ daily. No recurrent pneumonias. - Labs CBC & Chem 7: 09/30/23 06:47 09/30/23 06:47 Labs: Abnormal Lab Results - Last 24 Hours (Table) 09/29/23 09/30/23 09/30/23 Range/Units 06:42 06:47 06:47 Lymphocytes # 0.5 L (1.0-4.8) k/uL Glucose 143 H 127 H (70-110) mg/dL Microbiology - Last 24 Hours (Table) 09/28/23 14:43 Blood Culture - Preliminary Blood 09/28/23 14:43 Blood Culture - Preliminary Blood Assessment and Plan Plan: Acute COPD exacerbation, chest x-ray does not show any acute infiltrates or evidence of pneumonia. There is hyperinflation consistent with COPD. Negative for influenza, RSV, COVID at outside facility. Patient has chronic COPD, not utilizing any form of maintenance as per medication of inhalers. She has albuterol updrafts and HFA at home. Does not utilize oxygen at home. Acute hypoxemic respiratory failure, currently on 5 L/min nasal cannula, essent ially secondary to acute exacerbation. No evidence of pneumonia on chest x-ray that was done at time of admission. Should be able to gradually the patient's FiO2 as tolerated to maintain saturation above 90%. Chronic ongoing tobacco dependence History of hypothyroidism History of chronic back pain Plan: Limited improvement since yesterday and the patient continues to be hypoxic requiring O2 between 4 and 5 L Continue supplemental oxygen, to maintain oxygen saturation of 92% or greater, t itrate oxygen flow to maintain saturation above 90% Will optimize COPD Continue empiric azithromycin, no evidence of any pneumonia at this point in time and a viral screen has been negative Continue combination of DuoNebs, Symbicort inhaler, and IV Solu-Medrol Will need outpatient PFT Will need to evaluate for home O2 requirement at time of discharge Recommend low-dose annual lung cancer screening Smoking cessation counseling performed. Patient has refused nicotine replacement DVT prophylaxis Increase mobility Will continue to follow
--- NOTE | 2023-10-01 11:53 | P.PN ---
Subjective Progress Note Date: 10/01/23 No new complaints. Pt reports dyspnea continues to improve. Titrated down to 3L NC today. Gen: In NAD, non-toxic HEENT: normocephalic, atraumatic, hearing acuity is intant, mucous membranes moist CVS: perfusing all extremities well, no pitting edema, Respiratory: symmetric chest expansion, no accessory muscle use, diffuse wheezing GI: soft, NTTP, ND, : no suprapubic tenderness, no CVA tenderness MSK/Derm: no rashes, cyanosis Neuro: CN II-XII intact, no motor weakness, Psych: cooperative, euthymic mood, judgment and insight is intact Hospital course: 68 year old F with PMH of COPD, lower back pain, hypothyroidism presents to the ED as a transfer from [place]. Presents with 4 days of SOB with wheezing. She reports a chronic cough productive of clear sputum. Notes pulse ox in the 70's at home. Attempted nebulized treatments without much relief. Smokes 1/2 pack of cigarettes daily for many years. She does not use oxygen at home. She underwent extensive evaluation at [place]. O2 saturation as low as 88% with HR in the 110s. RSV COVID Flu negative. Lactic acid 1.2. CBC, CMP, coag panel performed significant for glucose 116, hematocrit 47.1, AST 46, INR 0.99. CT chest without contrast showed hiatal hernia, pulmonary nodules, emphysema, cholecystectomy, old healed rib fractures, mediastinal lymph nodes. Troponin negative. EKG sinus tachycardia. She was transferred to [facility] for further evaluation. BP 164/92, HR 92, RR 18, T 97.7F, 92% on 4L NC. Assessment/Plan: Acute hypoxic respiratory failure Acute on chronic COPD exacerbation: -DuoNeb QID scheduled and Q2H PRN for SOB/wheezing. -Solumedrol 60 mg IV Q6H, tapered to 40mg q12h today -Symbicort 2 puff BID. -Telemetry monitoring. -Pulmonary consult. -Add flutter valve -Azithromycin 500 mg IV QD x 3 days, completed Pulmonary nodules: Pulmonary consult. Chronic conditions: Lower back pain, hypothyroidism CODE STATUS: FULL CODE. DVT Prophylaxis: Lovenox SQ GI Prophylaxis: Protonix PO Designated medical POA if patient is not able to make medical decisions for themselves: Son Objective - Vital Signs Vital signs: Vital Signs Temp 98.0 F 10/01/23 07:31 Pulse 100 10/01/23 08:33 Resp 17 10/01/23 07:31 BP 158/93 10/01/23 07:31 Pulse Ox 93 L 10/01/23 08:14 FiO2 Intake & Output 09/30/23 10/01/23 10/01/23 18:59 06:59 18:59 Intake Total 250 Balance 250 Intake: Intake, IV Titration 250 Amount Azithromycin 500 mg In 250 Sodium Chloride 0.9% 250 ml @ 250 mls/hr IVPB DAILY [facility] Rx#:[id number] Other: Voiding Method Toilet Toilet Toilet - Labs CBC & Chem 7: 09/30/23 06:47 09/30/23 06:47 Labs: Microbiology - Last 24 Hours (Table) 09/28/23 14:43 Blood Culture - Preliminary Blood 09/28/23 14:43 Blood Culture - Preliminary Blood
--- NOTE | 2023-10-01 13:59 | P.PN ---
Subjective Progress Note Date: 10/01/23 68-year-old female patient, a chronic smoker continues to smoke 1/2 pack of ci garettes a day, coming to the hospital because of worsening shortness of breath. Note that she has been hospitalized in the past and her last hospitalization was around 1 or 2 years ago for COPD exacerbation. She used to [facility] and [facility] she is currently in [place] and she got transferred because of worsening shortness of breath. Some limited cough. Limited sputum production. No chest pain. No hemoptysis or pleurisy. He is not using any form of maintenance as per medications or inhalers. 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 She is currently on 5 L O2 nasal cannula. In the emergency, the chest x-ray showed no evidence of an acute pneumonia. No history of bronchial asthma. Lab work was noted and the patient has essentially a normal CBC with a white cell count of 8 with a hemoglobin 12.4 and a platelet count of 251. Electrolytes are normal. Initial lactic left acid level was at 2.4 dropped down to 1.3. The patient has no altered mentation. No previous history of DVT or pulmonary embolism. For now, she is on DuoNeb updrafts, she is on Symbicort as maintenance and she is also on IV Solu-Medrol 60 mg every 6 hours. She is on Lovenox for DVT prophylaxis 40 mg SQ daily. No recurrent pneumonias. On today's evaluation of 09/30/2023, the patient is being seen for a follow-up. She is still hypoxic and she has been weaned down to 4 L of oxygen by nasal cannula. She is still requiring 5 L with activity. Still bronchospastic and wheezy and limited improvement since yesterday. The white cell count of 6.8 with a hemoglobin 13.4. Electrolytes are all within normal limits. The patient remains on DuoNeb updrafts, she remains on IV Solu-Medrol. On today's evaluation of 10/01/2023, the patient is still struggling with her oxygenation. She was on down to 4 L and she may be potentially go down to 3 L depending on her oxygenation and pulse ox. Otherwise, she remains on the same bronchodilator regimen and steroid regimen. I suggest keeping the patient on a higher dose of Solu-Medrol 40 mg every 6 hours as the patient continues to have increased bronchospasm and wheezing and the patient would benefit from higher dose of steroids which enhance recovery during this current hospitalization. Otherwise, no other complaints otherwise for now. The main issue for this patient is an ongoing oxygen desaturation and there has been some modest improvement in oxygenation over the past 24 hours. Clinically however, she is less short of breath and she is less bronchospastic and wheezy. No other sign ificant events. Objective - Vital Signs Vital signs: Vital Signs Temp 98.0 F 10/01/23 07:31 Pulse 100 10/01/23 08:33 Resp 17 10/01/23 07:31 BP 158/93 10/01/23 07:31 Pulse Ox 93 L 10/01/23 08:14 FiO2 Intake & Output 09/30/23 10/01/23 10/01/23 18:59 06:59 18:59 Intake Total 250 Balance 250 Intake: Intake, IV Titration 250 Amount Azithromycin 500 mg In 250 Sodium Chloride 0.9% 250 ml @ 250 mls/hr IVPB DAILY [facility] Rx#:[id number] Other: Voiding Method Toilet Toilet Toilet - Exam 68-year-old female patient, a chronic smoker continues to smoke 1/2 pack of cigarettes a day, coming to the hospital because of worsening shortness of breath. Note that she has been hospitalized in the past and her last hospitalization was around 1 or 2 years ago for COPD exacerbation. She used to [facility] and [facility] she is currently in [place] and she got transferred because of worsening shortness of breath. Some limited cough. Limited sputum production. No chest pain. No hemoptysis or pleurisy. He is not using any form of maintenance as per medications or inhalers. 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 She is currently on 5 L O2 nasal cannula. In the emergency, the chest x-ray showed no evidence of an acute pneumonia. No history of bronchial asthma. Lab work was noted and the patient has essentially a normal CBC with a white cell count of 8 with a hemoglobin 12.4 and a platelet count of 251. Electrolytes are normal. Initial lactic left acid level was at 2.4 dropped down to 1.3. The patient has no altered mentation. No previous history of DVT or pulmonary embolism. For now, she is on DuoNeb [employer], she is on Symbicort as maintenance and she is also on IV Solu-Medrol 60 mg every 6 hours. She is on Lovenox for DVT prophylaxis 40 mg SQ daily. No recurrent pneumonias. - Labs CBC & Chem 7: 09/30/23 06:47 09/30/23 06:47 Labs: Microbiology - Last 24 Hours (Table) 09/28/23 14:43 Blood Culture - Preliminary Blood 09/28/23 14:43 Blood Culture - Preliminary Blood Assessment and Plan Plan: Acute COPD exacerbation, chest x-ray does not show any acute infiltrates or evidence of pneumonia. There is hyperinflation consistent with COPD. Negative for influenza, RSV, COVID at outside facility. Patient has chronic COPD, not utilizing any form of maintenance as per medication of inhalers. She has albuterol updrafts and HFA at home. Does not utilize oxygen at home. Acute hypoxemic respiratory failure, currently on 3 L/min nasal cannula, essentially secondary to acute exacerbation. No evidence of pneumonia on chest x-ray that was done at time of admission. Should be able to gradually the patient's FiO2 as tolerated to maintain saturation above 90%. Chronic ongoing tobacco dependence History of hypothyroidism History of chronic back pain Plan: Slow but ongoing improvement the patient's oxygenation The patient has been weaned down to 3 L of oxygen nasal cannula Continue supplemental oxygen, to maintain oxygen saturation of 92% or greater, titrate oxygen flow to maintain saturation above 90% Will optimize COPD Continue empiric azithromycin, no evidence of any pneumonia at this point in time and a viral screen has been negative Continue combination of DuoNebs, Symbicort inhaler, and IV Solu-Medrol, suggest maintaining the higher dose of Solu-Medrol to enhance recovery in this patient Will need to evaluate for home O2 requirement at time of discharge Recommend low-dose annual lung cancer screening Smoking cessation counseling performed. Patient has refused nicotine replacement DVT prophylaxis Increase mobility Will continue to follow
[2023-10-01 14:04] LABS: BUN/Creat Ratio 26.86 Ratio (12.00-20.00); Blood Urea Nitrogen 18.8 mg/dL (9.0-27.0); Calcium 8.6 mg/dL (8.7-10.3); Carbon Dioxide 32.7 mmol/L (21.6-31.8); Chloride 99 mmol/L (96-109); Glucose 134 mg/dL (70-110); Magnesium 2.1 mg/dL (1.5-2.4); Potassium 3.6 mmol/L (3.5-5.5); Sodium 142 mmol/L (135-145)
[2023-10-01 15:35] LABS: Basophils # (A) 0.03 X 10*3/uL (0.00-0.10); Basophils % (A) 0.4 %; Eosinophils # (A) 0 X 10*3/uL (0.04-0.35); Eosinophils % (A) 0 %; HCT 40.6 % (37.2-46.3); HGB 12.9 g/dL (12.0-15.0); Lymphocytes # (A) 0.56 X 10*3/uL (0.90-5.00); Lymphocytes % (A) 7.4 %; MCH 29.9 pg (27.0-32.0); MCHC 31.8 g/dL (32.0-37.0); MCV 94.2 FL (80.0-97.0); Mean Platelet Volume 10.6 FL (9.5-12.2); Monocytes % (A) 5.3 %; NRBC Per 100 WBC 0 X 10*3/uL (0.00-0.01); Neutrophils # (A) 6.27 X 10*3/uL (1.80-7.70); Neutrophils % (A) 82.7 %; Platelet Count 319 X 10*3/uL (140-440); RBC 4.31 X 10*6/uL (4.10-5.20); WBC 7.58 X 10*3/uL (4.50-10.00)
[2023-10-01] MEDS: methylPREDNISolone SOD SUCCI 125 MG/2 ML VIAL IV SCH (20:00)
[2023-10-01] MEDS ORDERED: methylPREDNISolone SOD SUCCI 40 MG/ML 1 ML VIAL IV SCH (21:00)
[2023-10-02 10:09] LABS: Basophils # (A) 0.03 X 10*3/uL (0.00-0.10); Basophils % (A) 0.4 %; Eosinophils # (A) 0 X 10*3/uL (0.04-0.35); Eosinophils % (A) 0 %; Lymphocytes # (A) 0.55 X 10*3/uL (0.90-5.00); Lymphocytes % (A) 6.5 %; MCH 30.6 pg (27.0-32.0); MCHC 33.3 g/dL (32.0-37.0); MCV 91.8 FL (80.0-97.0); Mean Platelet Volume 9.9 FL (9.5-12.2); Monocytes # (A) 0.54 X 10*3/uL (0.20-1.00); Monocytes % (A) 6.3 %; NRBC Per 100 WBC 0 X 10*3/uL (0.00-0.01); Neutrophils # (A) 7.04 X 10*3/uL (1.80-7.70); Neutrophils % (A) 82.7 %; Platelet Count 325 X 10*3/uL (140-440); RBC 4.25 X 10*6/uL (4.10-5.20); WBC 8.51 X 10*3/uL (4.50-10.00)
[2023-10-02 10:15] LABS: BUN/Creat Ratio 35.57 Ratio (12.00-20.00); Blood Urea Nitrogen 24.9 mg/dL (9.0-27.0); Calcium 9.1 mg/dL (8.7-10.3); Carbon Dioxide 31.2 mmol/L (21.6-31.8); Chloride 100 mmol/L (96-109); Glucose 123 mg/dL (70-110); Magnesium 2.1 mg/dL (1.5-2.4); Potassium 3.8 mmol/L (3.5-5.5); Sodium 141 mmol/L (135-145)
--- NOTE | 2023-10-02 10:56 | P.PN ---
Subjective Progress Note Date: 10/02/23 No new complaints. Pt reports dyspnea continues to improve. Titrated down to room air today. Gen: In NAD, non-toxic HEENT: normocephalic, atraumatic, hearing acuity is intant, mucous membranes moist CVS: perfusing all extremities well, no pitting edema, Respiratory: symmetric chest expansion, no accessory muscle use, end-expiratory wheezing on the left posterior lung field, less so on the right GI: soft, NTTP, ND, : no suprapubic tenderness, no CVA tenderness MSK/Derm: no rashes, cyanosis Neuro: CN II-XII intact, no motor weakness, Psych: cooperative, euthymic mood, judgment and insight is intact Hospital course: 68 year old F with PMH of COPD, lower back pain, hypothyroidism presents to the ED as a transfer from [place]. Presents with 4 days of SOB with wheezing. She reports a chronic cough productive of clear sputum. Notes pulse ox in the 70's at home. Attempted nebulized treatments without much relief. Smokes 1/2 pack of cigarettes daily for many years. She does not use oxygen at home. She underwent extensive evaluation at [place]. O2 saturation as low as 88% with HR in the 110s. RSV COVID Flu negative. Lactic acid 1.2. CBC, CMP, coag panel performed significant for glucose 116, hematocrit 47.1, AST 46, INR 0.99. CT chest without contrast showed hiatal hernia, pulmonary nodules, emphysema, cholecystectomy, old healed rib fractures, mediastinal lymph nodes. Troponin negative. EKG sinus tachycardia. She was transferred to [facility] for further evaluation. BP 164/92, HR 92, RR 18, T 97.7F, 92% on 4L NC. Assessment/Plan: Acute hypoxic respiratory failure Acute on chronic COPD exacerbation: -DuoNeb QID scheduled and Q2H PRN for SOB/wheezing. -Solumedrol 40mg q12h -Symbicort 2 puff BID. -Telemetry monitoring. -Pulmonary consult. -Add flutter valve -Azithromycin 500 mg IV QD x 3 days, completed Pulmonary nodules: Pulmonary consult. Chronic conditions: Lower back pain, hypothyroidism CODE STATUS: FULL CODE. DVT Prophylaxis: Lovenox SQ GI Prophylaxis: Protonix PO Designated medical POA if patient is not able to make medical decisions for themselves: Son Objective - Vital Signs Vital signs: Vital Signs Temp 98.1 F 10/02/23 07:48 Pulse 82 10/02/23 09:19 Resp 17 10/02/23 07:48 BP 161/100 10/02/23 07:48 Pulse Ox 95 10/02/23 09:46 FiO2 Intake & Output 10/01/23 10/02/23 10/02/23 18:59 06:59 18:59 Other: Voiding Method Toilet Toilet # Voids 4 - Labs CBC & Chem 7: 10/02/23 05:41 10/02/23 05:41 Labs: Abnormal Lab Results - Last 24 Hours (Table) 10/01/23 10/01/23 10/02/23 Range/Units 06:33 06:33 05:41 MCHC 31.8 L (32.0-37.0) g/dL Immature Gran # 0.32 H 0.35 H (0.00-0.04) X 10*3/uL Lymphocytes # 0.56 L 0.55 L (0.90-5.00) X 10*3/uL Eosinophils # 0 L 0 L (0.04-0.35) X 10*3/uL Carbon Dioxide 32.7 H (21.6-31.8) mmol/L BUN/Creatinine Ratio 26.86 H (12.00-20.00) Ratio Glucose 134 H (70-110) mg/dL Calcium 8.6 L (8.7-10.3) mg/dL 10/02/23 Range/Units 05:41 MCHC (32.0-37.0) g/dL Immature Gran # (0.00-0.04) X 10*3/uL Lymphocytes # (0.90-5.00) X 10*3/uL Eosinophils # (0.04-0.35) X 10*3/uL Carbon Dioxide (21.6-31.8) mmol/L BUN/Creatinine Ratio 35.57 H (12.00-20.00) Ratio Glucose 123 H (70-110) mg/dL Calcium (8.7-10.3) mg/dL Microbiology - Last 24 Hours (Table) 09/28/23 14:43 Blood Culture - Preliminary Blood 09/28/23 14:43 Blood Culture - Preliminary Blood
--- NOTE | 2023-10-02 12:44 | P.PN ---
Subjective Progress Note Date: 10/02/23 68-year-old female patient, a chronic smoker continues to smoke 1/2 pack of ci garettes a day, coming to the hospital because of worsening shortness of breath. Note that she has been hospitalized in the past and her last hospitalization was around 1 or 2 years ago for COPD exacerbation. She used to [facility] she is currently in [place] and she got transferred because of worsening shortness of breath. Some limited cough. Limited sputum production. No chest pain. No hemoptysis or pleurisy. He is not using any form of maintenance as per medications or inhalers. 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 She is currently on 5 L O2 nasal cannula. In the emergency, the chest x-ray showed no evidence of an acute pneumonia. No history of bronchial asthma. Lab work was noted and the patient has essentially a normal CBC with a white cell count of 8 with a hemoglobin 12.4 and a platelet count of 251. Electrolytes are normal. Initial lactic left acid level was at 2.4 dropped down to 1.3. The patient has no altered mentation. No previous history of DVT or pulmonary embolism. For now, she is on DuoNeb updrafts, she is on Symbicort as maintenance and she is also on IV Solu-Medrol 60 mg every 6 hours. She is on Lovenox for DVT prophylaxis 40 mg SQ daily. No recurrent pneumonias. On today's evaluation of 09/30/2023, the patient is being seen for a follow-up. She is still hypoxic and she has been weaned down to 4 L of oxygen by nasal cannula. She is still requiring 5 L with activity. Still bronchospastic and wheezy and limited improvement since yesterday. The white cell count of 6.8 with a hemoglobin 13.4. Electrolytes are all within normal limits. The patient remains on DuoNeb updrafts, she remains on IV Solu-Medrol. On today's evaluation of 10/01/2023, the patient is still struggling with her oxygenation. She was on down to 4 L and she may be potentially go down to 3 L depending on her oxygenation and pulse ox. Otherwise, she remains on the same bronchodilator regimen and steroid regimen. I suggest keeping the patient on a higher dose of Solu-Medrol 40 mg every 6 hours as the patient continues to have increased bronchospasm and wheezing and the patient would benefit from higher dose of steroids which enhance recovery during this current hospitalization. Otherwise, no other complaints otherwise for now. The main issue for this patient is an ongoing oxygen desaturation and there has been some modest improvement in oxygenation over the past 24 hours. Clinically however, she is less short of breath and she is less bronchospastic and wheezy. No other sign ificant events. On today's evaluation of 10/02/2023, the patient is feeling better and she has been weaned down to 2 L of oxygen by nasal cannula. Remains on bronchodilators and steroids. IV Solu-Medrol is running at 60 mg every 12 hours. Less bronchospastic and wheezy. She is ambulating. She is active. Objective - Vital Signs Vital signs: Vital Signs Temp 98.1 F 10/02/23 07:48 Pulse 82 10/02/23 09:19 Resp 17 10/02/23 07:48 BP 161/100 10/02/23 07:48 Pulse Ox 95 10/02/23 09:46 FiO2 Intake & Output 10/01/23 10/02/23 10/02/23 18:59 06:59 18:59 Other: Voiding Method Toilet Toilet # Voids 4 - Exam GENERAL EXAM: Alert, 68-year-old white female, appearing older than stated age, comfortable in no apparent distress. Patient is currently on 2 L of oxygen by nasal cannula. HEAD: Normocephalic and atraumatic EYES: Normal reaction of pupils, equal size. NOSE: Clear with pink turbinates. THROAT: No erythema or exudates. NECK: No masses, no JVD. CHEST: No chest wall deformity. LUNGS: Equal air entry with expiratory wheezes heard posteriorly, CVS: S1 and S2 normal with no audible murmur, regular rhythm. No extra heart sounds ABDOMEN: No hepatosplenomegaly, active bowel sounds, no guarding or rigidity. SPINE: No scoliosis or deformity SKIN: No rashes CENTRAL NERVOUS SYSTEM: No focal deficits, tone is normal in all 4 extremities. EXTREMITIES: There is no peripheral edema, clubbing, or cyanosis. Peripheral pulses are intact. - Labs CBC & Chem 7: 10/02/23 05:41 10/02/23 05:41 Labs: Abnormal Lab Results - Last 24 Hours (Table) 10/01/23 10/01/23 Range/Units 06:33 06:33 MCHC 31.8 L (32.0-37.0) g/dL Immature Gran # 0.32 H (0.00-0.04) X 10*3/uL Lymphocytes # 0.56 L (0.90-5.00) X 10*3/uL Eosinophils # 0 L (0.04-0.35) X 10*3/uL Carbon Dioxide 32.7 H (21.6-31.8) mmol/L BUN/Creatinine Ratio 26.86 H (12.00-20.00) Ratio Glucose 134 H (70-110) mg/dL Calcium 8.6 L (8.7-10.3) mg/dL Microbiology - Last 24 Hours (Table) 09/28/23 14:43 Blood Culture - Preliminary Blood 09/28/23 14:43 Blood Culture - Preliminary Blood Assessment and Plan Plan: Acute COPD exacerbation, chest x-ray does not show any acute infiltrates or evidence of pneumonia. There is hyperinflation consistent with COPD. Negative for influenza, RSV, COVID at outside facility. Patient has chronic COPD, not utilizing any form of maintenance as per medication of inhalers. She has albuterol updrafts and HFA at home. Does not utilize oxygen at home. Acute hypoxemic respiratory failure, currently on 2 L/min nasal cannula, essentially secondary to acute exacerbation. No evidence of pneumonia on chest x-ray that was done at time of admission. Should be able to gradually the patient's FiO2 as tolerated to maintain saturation above 90%. Chronic ongoing tobacco dependence History of hypothyroidism History of chronic back pain Plan: Oxygenation is improved and the patient is currently on 2 L of O2 nasal cannula. Continue supplemental oxygen, to maintain oxygen saturation of 92% or greater, titrate oxygen flow to maintain saturation above 90% The patient likely will need home O2 Will optimize COPD Continue empiric azithromycin, no evidence of any pneumonia at this point in time and a viral screen has been negative Continue combination of DuoNebs, Symbicort inhaler, and IV Solu-Medrol, suggest maintaining the higher dose of Solu-Medrol to enhance recovery in this patient Will need to evaluate for home O2 requirement at time of discharge Recommend low-dose annual lung cancer screening Smoking cessation counseling performed. Patient has refused nicotine replacement DVT prophylaxis Increase mobility Will continue to follow
[2023-10-02 14:05] VITALS: RESP 18
[2023-10-03 09:05] VITALS: BP 134/74; TEMP 97.9
--- NOTE | 2023-10-03 11:24 | P.DS ---
Providers Date of admission: 09/29/23 11:11 Expected date of discharge: 10/03/23 Attending physician: Bria Terry DO Consults: 09/28/23 14:23 Consult Physician Routine Consulting Provider: Ari Holden Consult Reason/Comments: dyspnea Do you want consulting provider notified?: Yes Primary care physician: Skyla Li, [facility] Hospital Course: No new complaints. Pt reports dyspnea continues to improve. Titrated down to room air today. Gen: In NAD, non-toxic HEENT: normocephalic, atraumatic, hearing acuity is intant, mucous membranes moist CVS: perfusing all extremities well, no pitting edema, Respiratory: symmetric chest expansion, no accessory muscle use, end-expiratory wheezing on the left posterior lung field, less so on the right GI: soft, NTTP, ND, : no suprapubic tenderness, no CVA tenderness MSK/Derm: no rashes, cyanosis Neuro: CN II-XII intact, no motor weakness, Psych: cooperative, euthymic mood, judgment and insight is intact Hospital course: 68 year old F with PMH of COPD, lower back pain, hypothyroidism presents to the ED as a transfer from [place]. Presents with 4 days of SOB with wheezing. She reports a chronic cough productive of clear sputum. Notes pulse ox in the 70's at home. Attempted nebulized treatments without much relief. Smokes 1/2 pack of cigarettes daily for many years. She does not use oxygen at home. She underwent extensive evaluation at [place]. O2 saturation as low as 88% with HR in the 110s. RSV COVID Flu negative. Lactic acid 1.2. CBC, CMP, coag panel performed significant for glucose 116, hematocrit 47.1, AST 46, INR 0.99. CT chest without contrast showed hiatal hernia, pulmonary nodules, emphysema, cholecystectomy, old healed rib fractures, mediastinal lymph nodes. Troponin negative. EKG sinus tachycardia. She was transferred to [facility] for further evaluation. BP 164/92, HR 92, RR 18, T 97.7F, 92% on 4L NC. Pt was treated with steroids, nebulizers, and 3 days of azithromycin. She was doing well on discharge but still required oxygen based on ambulatory 6MWT. She will f/u with pulmonology in 1 week. Assessment/Plan: Acute hypoxic respiratory failure Acute on chronic COPD exacerbation: -DuoNeb QID scheduled and Q2H PRN for SOB/wheezing. -Solumedrol 40mg q12h -Symbicort 2 puff BID. -Telemetry monitoring. -Pulmonary consult. -Add flutter valve -Azithromycin 500 mg IV QD x 3 days, completed Pulmonary nodules: Pulmonary consult. Chronic conditions: Lower back pain, hypothyroidism CODE STATUS: FULL CODE. DVT Prophylaxis: Lovenox SQ GI Prophylaxis: Protonix PO Designated medical POA if patient is not able to make medical decisions for themselves: Son Patient Condition at Discharge: Good Plan - Discharge Summary Discharge Rx Participant: No New Discharge Prescriptions: New Docusate [Colace] 100 mg PO BID PRN cap PRN Reason: Constipation Ipratropium-Albuterol Nebulize [Duoneb 0.5 mg-3 mg/3 ml Soln] 3 ml INHALATION RT-Q2H PRN #28 each PRN Reason: Shortness Of Breath Or Wheezing predniSONE [Deltasone] See Rx Instructions .ROUTE .COMPLEX #15 tab Pantoprazole [Protonix] 40 mg PO AC-BRKFST tab Budesonide-Formot 160-4.5 Mcg [Symbicort 160-4.5 Mcg Inhaler] 2 puff INHALATION RT-BID #1 each Calcium Carbonate [Tums] 500 mg PO QID PRN tab PRN Reason: Heartburn Acetaminophen Tab [Tylenol] 650 mg PO Q4HR PRN tab PRN Reason: Mild Pain Or Fever > 100.5 Continue HYDROcodone/APAP 5-325MG [[place] 5-325] 1 tab PO Q12H PRN PRN Reason: Pain Naproxen Sodium [Aleve] 220 - 440 mg PO Q8H PRN PRN Reason: Pain Levothyroxine Sodium 125 mcg PO DAILY Cyclobenzaprine [Flexeril] 10 mg PO Q12H PRN PRN Reason: Muscle Spasm Discharge Medication List HYDROcodone/APAP 5-325MG [[place] 5-325] 1 tab PO Q12H PRN 04/13/22 [History] Levothyroxine Sodium 125 mcg PO DAILY 04/13/22 [History] Cyclobenzaprine [Flexeril] 10 mg PO Q12H PRN 09/28/23 [History] Naproxen Sodium [Aleve] 220 - 440 mg PO Q8H PRN 09/28/23 [History] Acetaminophen Tab [Tylenol] 650 mg PO Q4HR PRN tab 10/03/23 [Rx] Budesonide-Formot 160-4.5 Mcg [Symbicort 160-4.5 Mcg Inhaler] 2 puff INHALATION RT-BID #1 each 10/03/23 [Rx] Calcium Carbonate [Tums] 500 mg PO QID PRN tab 10/03/23 [Rx] Docusate [Colace] 100 mg PO BID PRN cap 10/03/23 [Rx] Ipratropium-Albuterol Nebulize [Duoneb 0.5 mg-3 mg/3 ml Soln] 3 ml INHALATION RT-Q2H PRN #28 each 10/03/23 [Rx] Pantoprazole [Protonix] 40 mg PO AC-BRKFST tab 10/03/23 [Rx] predniSONE [Deltasone] See Rx Instructions .ROUTE .COMPLEX #15 tab 10/03/23 [Rx] Follow up Appointment(s)/Referral(s): Skyla Li FNPBC [Primary Care Provider] - 1-2 days Discharge Disposition: HOME WITH HOME HEALTH SERVICES
[2023-10-03 12:12] VITALS: PULSE 92
--- NOTE | 2023-10-03 16:58 | P.PN ---
Subjective Progress Note Date: 10/03/23 Principal diagnosis: Acute exacerbation of COPD 68-year-old female patient, a chronic smoker continues to smoke 1/2 pack of cigarettes a day, coming to the hospital because of worsening shortness of breath. Note that she has been hospitalized in the past and her last hospital ization was around 1 or 2 years ago for COPD exacerbation. She used to [facility] and [facility] she is currently in [place] and she got transferred because of worsening shortness of breath. Some limited cough. Limited sputum production. No chest pain. No hemoptysis or pleurisy. He is not using any form of maintenance as per medications or inhalers. 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 She is currently on 5 L O2 nasal cannula. In the emergency, the chest x-ray showed no evidence of an acute pneumonia. No history of bronchial asthma. Lab work was noted and the patient has essentially a normal CBC with a white cell count of 8 with a hemoglobin 12.4 and a platelet count of 251. Electrolytes are normal. Initial lactic left acid level was at 2.4 dropped down to 1.3. The patient has no altered mentation. No previous history of DVT or pulmonary embolism. For now, she is on DuoNeb updrafts, she is on Symbicort as maintenance and she is also on IV Solu-Medrol 60 mg every 6 hours. She is on Lovenox for DVT prophylaxis 40 mg SQ daily. No recurrent pneumonias. On today's evaluation of 09/30/2023, the patient is being seen for a follow-up. She is still hypoxic and she has been weaned down to 4 L of oxygen by nasal can nula. She is still requiring 5 L with activity. Still bronchospastic and wheezy and limited improvement since yesterday. The white cell count of 6.8 with a hemoglobin 13.4. Electrolytes are all within normal limits. The patient remains on DuoNeb updrafts, she remains on IV Solu-Medrol. On today's evaluation of 10/01/2023, the patient is still struggling with her oxygenation. She was on down to 4 L and she may be potentially go down to 3 L depending on her oxygenation and pulse ox. Otherwise, she remains on the same bronchodilator regimen and steroid regimen. I suggest keeping the patient on a higher dose of Solu-Medrol 40 mg every 6 hours as the patient continues to have increased bronchospasm and wheezing and the patient would benefit from higher dose of steroids which enhance recovery during this current hospitalization. Otherwise, no other complaints otherwise for now. The main issue for this patient is an ongoing oxygen desaturation and there has been some modest improvement in oxygenation over the past 24 hours. Clinically however, she is less short of breath and she is less bronchospastic and wheezy. No other significant events. On today's evaluation of 10/02/2023, the patient is feeling better and she has been weaned down to 2 L of oxygen by nasal cannula. Remains on bronchodilators and steroids. IV Solu-Medrol is running at 60 mg every 12 hours. Less bron chospastic and wheezy. She is ambulating. She is active. Reevaluate today on 10/03/2023, patient is feeling much better, breathing a lot easier, not in any distress, patient is asking to be discharged home. I believe the patient is ready to be discharged, and she will need to be followed up on ou tpatient basis. Could be discharged on her oxygen if she qualifies, as well as bronchodilators in the form of DuoNeb, Trelegy Ellipta, and prednisone burst and taper over 2 weeks. Objective - Vital Signs Vital signs: Vital Signs Temp 97.9 F 10/03/23 07:44 Pulse 92 10/03/23 12:13 Resp 18 10/03/23 08:21 BP 134/74 10/03/23 07:44 Pulse Ox 85 L 10/03/23 10:29 FiO2 Intake & Output 10/02/23 10/03/23 10/03/23 18:59 06:59 18:59 Other: Voiding Method Toilet Toilet Toilet # Voids 5 3 # Bowel Movements 1 - Exam GENERAL EXAM: Alert, 68-year-old white female, in no distress, pleasant on 2 L nasal cannula HEAD: Normocephalic and atraumatic EYES: Normal reaction of pupils, equal size. NOSE: Clear with pink turbinates. THROAT: No erythema or exudates. NECK: No masses, no JVD. CHEST: No chest wall deformity. LUNGS: Clear bilaterally no rhonchi no wheezes CVS: S1 and S2 normal with no audible murmur, regular rhythm. No extra heart sounds ABDOMEN: No hepatosplenomegaly, active bowel sounds, no guarding or rigidity. SKIN: No rashes CENTRAL NERVOUS SYSTEM: Alert oriented x 3 no gross focal deficit EXTREMITIES: No clubbing no edema no cyanosis t. - Labs CBC & Chem 7: 10/02/23 05:41 10/02/23 05:41 Assessment and Plan Assessment: Pression: Acute exacerbation of COPD Acute hypoxic respiratory failure Tobacco dependence syndrome Hypothyroidism Chronic back pain Recommendation: Agree with discharge planning Continue bronchodilators including DuoNeb at home Trelegy Ellipta at home 1 puff daily 100/62.5/25 Prednisone to be tapered on outpatient basis over the next 2 weeks starting at 40 mg daily Patient to follow-up on outpatient basis Time with Patient: Less than 30
[2023-10-04] MEDS ORDERED: predniSONE 20 MG TAB PO SCH (09:00)
== END 2023-10-03 13:20 | disposition home health service (06) | DRG 190 ==
LOC: EC 13:58 → 4SSUR 14:25 → OBSVTOIN 09-29 11:11
PROVIDERS: ADMIT Internal Medicine; ATTEND Internal Medicine
DX: J44.1 Chronic obstructive pulmonary disease with (acute) exacerbation (principal); J96.01 Acute respiratory failure with hypoxia; J44.0 Chronic obstructive pulmonary disease with (acute) lower respiratory infection; E03.9 Hypothyroidism, unspecified; J20.9 Acute bronchitis, unspecified; F17.210 Nicotine dependence, cigarettes, uncomplicated; G89.29 Other chronic pain; M54.50 Low back pain, unspecified; K44.9 Diaphragmatic hernia without obstruction or gangrene; Z79.51 Long term (current) use of inhaled steroids; Z79.890 Hormone replacement therapy; Z79.1 Long term (current) use of non-steroidal anti-inflammatories (NSAID); Z87.81 Personal history of (healed) traumatic fracture
CPT/HCPCS: 36415; 71045; 80048; 83605; 83735; 85025; 87040; 94640; 94760; 96365; 96375; 99285